=== PATIENT | female | born 1960 | race African-American/Black ===

== ENCOUNTER → 2019-01-04 | Day surgery (SDC) | payer BC ==
[~2019-01-04] MED LIST: ALIVE VITAMINS PO; ASCORBIC ACID500 MG PO; CEFDINIR300 MG PO; DEXAMETHASONE SOD PHOS INJ 4 MG/ML VIAL ONE; FENTANYL CITRATE/PF 100MCG/2 ML INJ ONE; FERROUS SULFAT325 MG PO; GENTAMICIN 80MG/NS 100 ML 100 ML IV ONE; IOPAMIDOL 610MG/1ML 300 MG/ML VIAL IV ONE; LIDOCAINE HCL 2% LOCAL INJ 5 ML SDV VIAL INJ ONE; LORATADINE10 MG PO; MIDAZOLAM HCL 2 MG/2 ML VIAL ONE; MUCINEX DM ER1 EACH PO; ONDANSETRON HCL INJ 2MG/ML 2ML 2 MG/ML VIAL ONE; PROCARDIA XL30 MG PO; PROPOFOL IV EMULSION 10 MG/ML 20 ML VIAL ONE; PROZAC20 MG PO; SEVOFLURANE INHAL SOLN 250 ML PEN BTL ONE; ZITHROMAX500 MG PO
--- OUTSIDE RECORDS SUMMARY | 2019-01-04 13:19 | XMS REPORT ---
Author Author [facility] Address Unknown Phone Unavailable Care Team Providers Care Dip Dyer Name Role Phone Unavailable Unavailable Payers Payer Name Policy Type Policy Number Effective Date Expiration Date Problems This patient has no known problems. Allergies, Adverse Reactions, Alerts Allergy Name Allergy Type Status Severity Reaction(s) Onset Date Inactive Date Treating Clinician Comments No Known Contrast Allergies DA Active U 2002-08-01 00:00:00 No Known Drug Allergies DA Active U 2002-08-01 00:00:00 No Known Food Allergies DA Active U 2002-08-01 00:00:00 No Known Other Allergies DA Active U 2002-08-01 00:00:00 Medications This patient has no known medications.
--- OUTSIDE RECORDS SUMMARY | 2019-01-04 13:19 | XMS REPORT | Clinical Summary ---
Author Author [facility] Address Unknown Phone Unavailable Care Team Providers Care Furnace Builder Name Role Phone Oz Arenas MD PCP Allergies Comments Active Allergy Reactions Severity Noted Date blisters Latex 11/28/2018 Sulfa (Sulfonamide Rash Low 10/31/2018 Antibiotics) Medications End Date Status Medication Sig Dispensed Refills Start Date Active NIFEdipine XL (PROCARDIA Take 60 mg by 0 XL) 60 MG 24 hr tablet mouth daily. Active FLUoxetine (PROzac) 10 MG Take 10 mg by 0 capsule mouth daily. Active mv-mn/folic acid/vit Take by 0 [id number] (ALIVE ONCE mouth. DAILY WOMEN 50 PLUS ORAL) 11/28/2018 Discontinued AMOXICILLIN ORAL Take 1 tablet 0 by mouth 2 (two) times a day. Active Problems Problem Noted Date Kidney stones 11/30/2018 Encounters Care Team Description Date Type Specialty Brennan Osborne MD ESWL WITH CYSTO, RIGHT STENT EXCHANGE 11/30/2018 Surgery General Surgery Shiraz Claudio, TOWER HOIST OPERATOR 11/30/2018 Anesthesia General Surgery Event Brennan Osborne MD Preop testing 11/30/2018 Hospital General Surgery Encounter Brennan Osborne MD Preop testing (Primary Dx) 11/28/2018 Pre-Admit Pre-Admission Testing Testing Appointment Brennan Osborne MD ESWL WITH CYSTO WITH INSERTION OF RIGHT STENT 11/02/2018 Surgery General Surgery Shiraz Claudio, TOWER HOIST OPERATOR 11/02/2018 Anesthesia General Surgery Event Brennan Osborne MD 11/02/2018 Hospital General Surgery Encounter Brennan Osborne MD Preop testing (Primary Dx) 10/31/2018 Pre-Admit Pre-Admission Testing Testing Appointment after 01/03/2018 Family History Medical History Relation Name Comments Cancer Father prostate Diabetes Father Prostate cancer Father Breast cancer Mother Cancer Mother breast Relation Name Status Comments Father Mother Social History Date Tobacco Use Types Packs/Day Years Used Never Smoker Smokeless Tobacco: Never Used Alcohol Use Drinks/Week oz/Week Comments Yes rarely Sex Assigned at Date Recorded Not on file Industry Job Start Date Occupation Not on file Not on file Not on file Travel End Travel History Travel Start No recent travel history available. Last Filed Vital Signs Time Taken Vital Sign Reading 11/30/2018 2:35 PM SOLAR DEVELOPMENT ENGINEER Blood Pressure 144/85 11/30/2018 2:35 PM SOLAR DEVELOPMENT ENGINEER Pulse 52 11/30/2018 2:08 PM SOLAR DEVELOPMENT ENGINEER Temperature 36.6 C (97.8 F) 11/30/2018 2:35 PM SOLAR DEVELOPMENT ENGINEER Respiratory Rate 16 11/30/2018 2:35 PM SOLAR DEVELOPMENT ENGINEER Oxygen Saturation 99% - Inhaled Oxygen - Concentration 11/30/2018 11:00 AM SOLAR DEVELOPMENT ENGINEER Weight 99 kg (218 lb 3.2 oz) 11/30/2018 11:00 AM SOLAR DEVELOPMENT ENGINEER Height 172.7 cm (5' 8") 11/30/2018 11:00 AM SOLAR DEVELOPMENT ENGINEER Body Mass Index 33.18 Plan of Treatment Health Maintenance Due Date Last Done Comments CERVICAL CANCER SCREENING 1980 BREAST CANCER SCREENING 2009 COLON CANCER SCREENING 2009 SHINGLES VACCINES (#1) 2009 INFLUENZA VACCINE 05/11/2018 Implants Device Identifier Shelf Expiration Date Model / Serial / Lot Implanted Type Area Manufactur er 08/01/2021 [id number] / / [id number] Stent Uretl Unvrsa 6fr 26cm Urological Right: Ureter, COOK Hydrphlc W/O Gw - [id number] Implants [place] UROLOGICAL Implanted: Qty: 1 on 11/02/2018 by or Brennan Briceno MD 08/27/2022 [id number] / / [id number] Stnt Uret 4.7fr 26cm Inlay - Urological N/A: N/A BARD [id number] Implants UROLOGICAL Implanted: Qty: 1 on 11/30/2018 by or Brennan Fiore MD Procedures Comments Procedure Name Priority Date/Time Associated Diagnosis ESWL WITH CYSTO WITH 11/30/2018 RIGHT KIDNEY STONE- N20.0 INSERTION OF STENT 1:00 PM SOLAR DEVELOPMENT ENGINEER Special Needs OFFICE SCHEDULES WITH NEXTMED [place] AN ELECTIVE Routine 11/30/2018 SUPRAGLOTTIC AIRWAY 12:55 PM SOLAR DEVELOPMENT ENGINEER Procedure Note - Shiraz Claudio CRNA - 11/30/2018 12:55 PM SOLAR DEVELOPMENT ENGINEER Airway Performed by: Shiraz Claudio CRNA Authorized by: Richard Perez MD Location: OR Urgency: Elective Difficult Airway: No Anesthesio logist: Richard Perez MD Resident/C RNA/AA: Shiraz Claudio CRNA Performed by: resident/C RNA/AA Preoxygena pedro with 100% O2: Yes Mask Ventilatio n: Not attempted Final Airway Type: Supraglott ic airway Final LMA: Unique LMA Size: 4 Number of Attempts at Approach: 1 Atraumati c, teeth intact AL AN ELECTIVE Routine 11/02/2018 SUPRAGLOTTIC AIRWAY 7:26 AM SOLAR DEVELOPMENT ENGINEER Procedure Note - John Odom - 11/02/2018 7:26 AM SOLAR DEVELOPMENT ENGINEER ANESTHESIA INTUBATION Date/Time: 11/02/2018 7:13 AM Performed by: John Odom Authorized by: Richard Perez MD Location: OR Urgency: Elective Difficult Airway: No Anesthesio logist: Richard Perez MD Resident/C RNA/AA: John Odom Performed by: resident/C RNA/AA Preoxygena pedro with 100% O2: Yes Mask Ventilatio n: Not attempted Final Airway Type: Supraglott ic airway Final LMA: Unique LMA Size: 4 Number of Attempts at Approach: 1 ESWL WITH CYSTO WITH 11/02/2018 N20.0 KIDNEY STONE INSERTION OF STENT 7:15 AM SOLAR DEVELOPMENT ENGINEER Special Needs [facility] CONF# [id number] ECG 12-LEAD Routine 10/31/2018 Preop testing 10:26 AM SOLAR DEVELOPMENT ENGINEER after 01/03/2018 Results * ECG 12 lead (10/31/2018 10:26 AM SOLAR DEVELOPMENT ENGINEER) Ventricular rate 60 [facility] Atrial rate 60 [facility] AL interval 156 [facility] QRSD interval 72 [facility] QT interval 468 [facility] QTC interval 468 [facility] P axis 1 22 [facility] QRS axis 1 -7 [facility] T wave axis 14 [facility] EKG impression Normal sinus rhythm-Voltage [facility] MUSE criteria for left ventricular hypertrophy-Prolonged QT-Abnormal ECG-No previous ECGs available- Narrative Performed At Performing Organization Address City/State/Zipcode Phone Number [facility] MUSE [address] [place] [address] after 01/03/2018 Insurance Payer Benefit Subscriber ID Type Phone Address Plan / Group BCBS ANTHEM xxxxxxxxxxxx PPO BLUE CROSS Advance Directives Patient has advance care planning documents on file. For more information, shante dominguez contact: Anil Walker [address] [place] [address]
[2019-01-04 16:15] VITALS: BP 120/80
--- NOTE | 2019-01-04 18:41 | Operative Report ---
DATE OF PROCEDURE: 01/04/2019 SURGEON: Brennan Osborne MD PREOPERATIVE DIAGNOSES: 1. Indwelling right ureteral stent. 2. Right staghorn calculus. POSTOPERATIVE DIAGNOSES: 1. Indwelling right ureteral stent. 2. 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 PROCEDURES: 1. Cystoscopy with complicated removal of a right indwelling ureteral stent in a staged fashion (entirely separate procedure for right indwelling stent). 2. Right-sided ureteroscopy, stone extraction (entirely separate procedure for right ureteral calculus in a staged fashion). 3. Right-sided ureteroscopy with laser lithotripsy staged (entirely separate procedure with explicit purpose of ridding the patient of staghorn right renal calculi). 4. Cystourethroscopy with insertion of a right indwelling ureteral stent (entirely separate procedure for diagnosis of right hydronephrosis staged). 5. Supervision of fluoroscopy. 6. Interpretation of retrograde pyelography. ANESTHESIA: General. ESTIMATED BLOOD LOSS: Minimal. COMPLICATIONS: None. INDICATIONS FOR PROCEDURE: Mrs. Redding is a very pleasant 58-year-old female, who has had staged procedures for staghorn calculi on the right. She and I had a long discussion about alternatives, risks and benefits, including doing nothing, shock wave lithotripsy, ureteroscopy, percutaneous surgery or open surgery. She voiced understanding of the options, alternatives, the risks and the benefits. She elected to proceed with ureteroscopy and dusting instead of percutaneous nephrolithotomy due to the increased rehab time and recovery time. She voiced understanding of the options, alternatives, risks, and benefits and she elected to proceed. PROCEDURE IN DETAIL: After informed consent was obtained, the patient was taken to the operative suite, placed supine on the operating table, underwent general anesthesia by the Anesthesia service, placed in dorsal lithotomy position, and sterilely prepped and draped in a standard fashion for cystoscopy. A 22.5-Dominican cystoscope was inserted per urethra. Encrusted stent was grasped and removed, it could not be catheterized. A guidewire was inserted alongside the ureteral stent and seen to coil at the level of renal pelvis under fluoroscopy. The ureter was then dilated with the ureteroscopic sheath. Second safety wire was introduced. A flexible ureteroscope was advanced. Ureteral calculus was seen in the proximal ureter. This was grasped with a basket and removed, passed off the table as a specimen. The scope was reintroduced, advanced all the way to the level of renal pelvis. At the beginning of the procedure, there was approximately 2 cm of cluster stone in the renal pelvis, a large 2.5 x 2 cm cluster in the superior pole, and a 1 x 1.5 cm cluster in the right lower pole. Utilizing the 274 micron laser fiber, the pelvic stones as well as a portion of the upper pole stones were ablated until visualization became impossible due to stone dust. At this time, no more visualization available. Scope was withdrawn, ureteral stent 7 x 26 cm was deployed with coil in the renal pelvis in the portal bladder. The patient's bladder was drained. She was awakened from anesthesia, transferred to recovery room in good condition. Supervision of fluoroscopy, interpretation of retrograde pyelography: I was present for the entire procedure and I supervised the use of fluoroscopy for both the stent removal, ureteroscopic portion to the ureteroscope. Right retrograde pyelogram was performed revealing a very large stone burden and staghorn calculi on the right side. Interim removal of large amount of right renal pelvis stones has been seen. MD WIL Junior/MODL /[id number] [place]TD[place]
== END | disposition home or self-care (01) ==
LOC: OR 13:15
PROVIDERS: ATTEND Urology
DX: N20.0 Calculus of kidney (principal); Z46.6 Encounter for fitting and adjustment of urinary device; N39.0 Urinary tract infection, site not specified; R35.1 Nocturia; I10 Essential (primary) hypertension; I49.1 Atrial premature depolarization; Z88.2 Allergy status to sulfonamides; Z01.810 Encounter for preprocedural cardiovascular examination; Z68.31 Body mass index [BMI] 31.0-31.9, adult
CPT/HCPCS: 52356; 74420; 88300; 93005; C2617; J1100; J1580; J2001; J2250; J2405; J2704; Q9967

== ENCOUNTER 2019-01-06 22:37 | Inpatient (IN) | payer BC ==
[~2019-01-06] VITALS: Ht 172.7 cm; Wt 96.3 kg
[~2019-01-06 22:37] MED LIST changes: -ASCORBIC ACID500 MG PO; -CEFDINIR300 MG PO; -DEXAMETHASONE SOD PHOS INJ 4 MG/ML VIAL ONE; -FENTANYL CITRATE/PF 100MCG/2 ML INJ ONE; -FERROUS SULFAT325 MG PO; -GENTAMICIN 80MG/NS 100 ML 100 ML IV ONE; -IOPAMIDOL 610MG/1ML 300 MG/ML VIAL IV ONE; -LIDOCAINE HCL 2% LOCAL INJ 5 ML SDV VIAL INJ ONE; -LORATADINE10 MG PO; -MIDAZOLAM HCL 2 MG/2 ML VIAL ONE; -MUCINEX DM ER1 EACH PO; -ONDANSETRON HCL INJ 2MG/ML 2ML 2 MG/ML VIAL ONE; -PROPOFOL IV EMULSION 10 MG/ML 20 ML VIAL ONE; -SEVOFLURANE INHAL SOLN 250 ML PEN BTL ONE; -ZITHROMAX500 MG PO
--- OUTSIDE RECORDS SUMMARY | 2019-01-06 22:39 | XMS REPORT | Clinical Summary ---
Author Author [facility] Address Unknown Phone Unavailable Care Team Providers Care Cap Machine Operator Name Role Phone Oz Arenas MD PCP [...] daily. Active mv-mn/folic acid/vit Take by 0 [id number] (ALIVE ONCE mouth. DAILY WOMEN 50 PLUS ORAL) 11/28/2018 Discontinued AMOXICILLIN ORAL Take 1 tablet 0 by mouth 2 (two) times a day. Active Problems Problem Noted Date Kidney stones 11/30/2018 Encounters Care Team Description Date Type Specialty Brennan Osborne MD ESWL WITH CYSTO, RIGHT STENT EXCHANGE 11/30/2018 Surgery General Surgery Shiraz Claudio, CEMENT TESTER ASSISTANT 11/30/2018 Anesthesia General Surgery Event Brennan Osborne MD Preop testing 11/30/2018 Hospital General Surgery Encounter Brennan Osborne MD Preop testing (Primary Dx) 11/28/2018 Pre-Admit Pre-Admission Testing Testing Appointment Brennan Osborne MD ESWL WITH CYSTO WITH INSERTION OF RIGHT STENT 11/02/2018 Surgery General Surgery Shiraz Claudio, CEMENT TESTER ASSISTANT 11/02/2018 Anesthesia General Surgery Event Brennan Osborne MD 11/02/2018 Hospital General Surgery Encounter Brennan Osborne MD Preop testing (Primary Dx) 10/31/2018 Pre-Admit Pre-Admission Testing Testing Appointment after 01/05/2018 Family History Medical History Relation Name Comments [...] Taken Vital Sign Reading 11/30/2018 2:35 PM PERSONAL COACH Blood Pressure 144/85 11/30/2018 2:35 PM PERSONAL COACH Pulse 52 11/30/2018 2:08 PM PERSONAL COACH Temperature 36.6 C (97.8 F) 11/30/2018 2:35 PM PERSONAL COACH Respiratory Rate 16 11/30/2018 2:35 PM PERSONAL COACH Oxygen Saturation 99% - Inhaled Oxygen - Concentration 11/30/2018 11:00 AM PERSONAL COACH Weight 99 kg (218 lb 3.2 oz) 11/30/2018 11:00 AM PERSONAL COACH Height 172.7 cm (5' 8") 11/30/2018 11:00 AM PERSONAL COACH Body Mass Index 33.18 Plan of Treatment Health Maintenance Due Date Last Done Comments CERVICAL CANCER SCREENING 1980 BREAST CANCER SCREENING 2009 COLON CANCER SCREENING 2009 SHINGLES VACCINES (#1) 2009 INFLUENZA VACCINE 05/11/2018 Implants Device Identifier Shelf Expiration Date Model / Serial / Lot Implanted Type Area Manufactur er 08/01/2021 [id number] / / [id number] Stent Uretl Unvrsa 6fr 26cm Urological Right: Ureter, COOK Hydrphlc W/O Gw - [id number] Implants [place] UROLOGICAL Implanted: Qty: 1 on 11/02/2018 by or Brennan Briceno MD 08/27/2022 [id number] / / [id number] Stnt Uret 4.7fr 26cm Inlay - Urological N/A: N/A BARD [id number] Implants UROLOGICAL Implanted: Qty: 1 on 11/30/2018 by or Brennan Fiore MD Procedures Comments Procedure Name Priority Date/Time Associated Diagnosis ESWL WITH CYSTO WITH 11/30/2018 RIGHT KIDNEY STONE- N20.0 INSERTION OF STENT 1:00 PM PERSONAL COACH Special Needs OFFICE SCHEDULES WITH NEXTMED [place] AN ELECTIVE Routine 11/30/2018 SUPRAGLOTTIC AIRWAY 12:55 PM PERSONAL COACH Procedure Note - Shiraz Claudio CRNA - 11/30/2018 12:55 PM PERSONAL COACH Airway Performed by: Shiraz Claudio CRNA Authorized [...] at Approach: 1 Atraumati c, teeth intact [place] AN ELECTIVE Routine 11/02/2018 SUPRAGLOTTIC AIRWAY 7:26 AM PERSONAL COACH Procedure Note - John Odom - 11/02/2018 7:26 AM PERSONAL COACH ANESTHESIA INTUBATION Date/Time: 11/02/2018 7:13 AM Performed [...] KIDNEY STONE INSERTION OF STENT 7:15 AM PERSONAL COACH Special Needs [facility] CONF# [id number] ECG 12-LEAD Routine 10/31/2018 Preop testing 10:26 AM PERSONAL COACH after 01/05/2018 Results * ECG 12 lead (10/31/2018 10:26 AM PERSONAL COACH) Ventricular rate 60 [facility] Atrial rate 60 [facility] FL interval 156 [facility] QRSD interval 72 [facility] QT interval 468 [facility] QTC interval 468 [facility] P axis 1 22 [facility] QRS axis 1 -7 [facility] T wave axis 14 [facility] EKG impression Normal sinus rhythm-Voltage [facility] MUSE criteria for left ventricular hypertrophy-Prolonged QT-Abnormal ECG-No previous ECGs available- Narrative Performed At Performing Organization Address City/State/Zipcode Phone Number [facility] M[facility] [address] [place] [address] after 01/05/2018 Insurance Payer Benefit Subscriber ID Type Phone Address Plan / Group BCBS ANTHEM xxxxxxxxxxxx PPO BLUE CROSS Advance Directives Patient has advance care planning documents on file. For more information, shante dominguez contact: Anil Walker [address] [place] [address]
[2019-01-06] MEDS ORDERED: ACETAMINOPHEN 325 MG TAB PO ONE (23:45)
[2019-01-07] VITALS (8 sets, daily range): BP systolic 101–140; BP diastolic 56–83
--- NOTE | 2019-01-07 00:35 | Diagnostic Imaging Report ---
EXAM: CT Abdomen and Pelvis WITHOUT contrast INDICATION: EVAL FOR KIDNEY STONE, RECENT URETERAL STENT COMPARISON: None. TECHNIQUE: Abdomen and pelvis were scanned utilizing a multidetector helical scanner from the lung base to the pubic symphysis without administration of IV contrast. Absence of intravenous contrast decreases sensitivity for detection of focal lesions and vascular pathology. Coronal and sagittal reformations were obtained. Routine protocol was performed. IV CONTRAST: None ORAL CONTRAST: Water COMPLICATIONS: None RADIATION DOSE: Total DLP: 651.01 mGy*cm Estimated effective dose: (DLP x 0.015 x size factor) mSv Dose modulation, iterative reconstruction, and/or weight based adjustment of the mA/kV was utilized to reduce the radiation dose to as low as reasonably achievable. FINDINGS: LINES and TUBES: Right ureteral stent and LAP-BAND in place. LOWER THORAX: Groundglass and tree-in-bud opacities in the left lower lobe. HEPATOBILIARY: Hepatic steatosis. No focal hepatic lesions. No biliary ductal dilation. GALLBLADDER: No radio-opaque stones or sludge. No wall thickening. SPLEEN: No splenomegaly. PANCREAS: No focal masses or ductal dilatation. ADRENALS: No adrenal nodules KIDNEYS/URETERS: Mild right hydronephrosis and perinephric stranding. Ureteral stent with proximal loop in the renal pelvis and distal loop in the bladder. No stent encrustation noted. 4 mm stone at the ureteropelvic junction. Right superior pole 6 mm stone and adjacent 4 mm stone versus parenchymal calcification. Stones throughout the right inferior pole calyces. Left proximal ureteral 3 mm stone without hydronephrosis. GI TRACT: No abnormal distention, wall thickening, or evidence of bowel obstruction. Appendix is normal. PELVIC ORGANS/BLADDER: Unremarkable. LYMPH NODES: No lymphadenopathy. VESSELS: Unremarkable. PERITONEUM / RETROPERITONEUM: No free air or fluid. BONES: There are degenerative changes in the lumbar spine. SOFT TISSUES: Midline laparotomy scar and sutures. IMPRESSION: 1. Right ureteral stent in place with mild hydronephrosis. 2. Left proximal ureteral 3 mm stone without hydronephrosis. 3. Left lower lobe groundglass and tree-in-bud opacities may represent aspiration or atypical infection. Signed by: DR. Nash Ferris MD on 01/07/2019 12:31 AM
--- NOTE | 2019-01-07 00:36 | Diagnostic Imaging Report ---
EXAMINATION: CHEST 2 VIEWS INDICATION: COUGH COMPARISON: CT abdomen and pelvis 01/07/2019 FINDINGS: PA and lateral views TUBES and LINES: Lap band with normal phi angle. Partially visualized right ureteral stent on lateral view. LUNGS: Left lower lobe tree-in-bud and groundglass opacities are better seen on CT 01/07/2019. There is no evidence of consolidative pneumonia or pulmonary edema. PLEURA: No pleural effusion or pneumothorax. HEART AND MEDIASTINUM: The cardiomediastinal silhouette is unremarkable. BONES AND SOFT TISSUES: No acute osseous lesion. Soft tissues are unremarkable. UPPER ABDOMEN: No free air under the diaphragm. IMPRESSION: Left lower lobe tree-in-bud and groundglass opacities concerning for aspiration or atypical infection are better seen on CT 01/07/2019. Signed by: DR. Nash Ferris MD on 01/07/2019 12:33 AM
[2019-01-07] MEDS ORDERED: AZITHROMYCIN 500MG/NS 250 ML 250 ML IV STA (00:45)
[2019-01-07] MEDS ORDERED: CEFTRIAXONE SOD 1 GM/NS 50 ML 50 ML IV ONE (00:45)
[2019-01-07 00:46] LABS: BASOPHILS % 0.1 % (0.0-1.0); EOSINOPHILS % 0.2 % (0.0-6.0); HEMATOCRIT 38.2 % (34.2-44.1); HEMOGLOBIN 12.3 g/dL (12.0-16.0); LYMPHOCYTES # (AUTO) 1.6 (1.0-3.2); LYMPHOCYTES % 11.5 % (18.0-39.1); MEAN CORPUSCULAR HEMOGLOBIN 28.1 pg (28-32); MEAN CORPUSCULAR HGB CONC 32.2 g/dL (31-35); MEAN CORPUSCULAR VOLUME 87.4 fL (81-99); MONOCYTES # (AUTO) 1.2 (0.2-0.8); MONOCYTES % 8.4 % (4.4-11.3); NEUTROPHILS # (AUTO) 11.2 (2.1-6.9); NEUTROPHILS % 79.4 % (38.7-80.0); PLATELET COUNT 261 x10e3/uL (140-360); RED BLOOD COUNT 4.37 x10e6/uL (3.6-5.1); RED CELL DISTRIBUTION WIDTH 14.3 % (11.7-14.4)
[2019-01-07 01:05] LABS: BILIRUBIN,URINE 1+ (NEGATIVE); CLARITY,URINE SL CLOUDY (CLEAR); COLOR,URINE YELLOW (YELLOW); KETONES,URINE 1+ (NEGATIVE); LEUKOCYTE ESTERASE ,URINE 2+ (NEGATIVE); NITRITE,URINE NEGATIVE (NEGATIVE); PROTEIN,URINE DIPSTICK 3+ (NEGATIVE); URINE UROBILINOGEN 4 mg/dL (0.2 - 1)
[2019-01-07 01:06] LABS: ALBUMIN 3.1 g/dL (3.5-5.0); ALBUMIN/GLOBULIN RATIO 0.6 (0.8-2.0); ANION GAP 15.8 mmol/L (8-16); CALCIUM 9.5 mg/dL (8.4-10.2); POTASSIUM 3.8 mmol/L (3.5-5.1)
[2019-01-07 01:13] LABS: AMORPHOUS SEDIMENT,URINE MODERATE (FEW); BACTERIA,URINE FEW /HPF; EPITHELIAL CELLS,URINE FEW /LPF; RBC,URINE 21-50 /HPF (0-5); WBC,URINE (MAN) 21-50 /HPF (0-5)
[2019-01-07] MEDS ORDERED: SODIUM CHLORIDE 0.9% 1000ML 1,000 ML IV SCH (01:30)
[2019-01-07] MEDS ORDERED: MORPHINE SULFATE INJ 4 MG/ML INJ 1ML IV PRN (01:30)
[2019-01-07] MEDS ORDERED: ONDANSETRON HCL INJ 2MG/ML 2ML 2 MG/ML VIAL IV PRN ×2 (01:30→13:30)
--- OUTSIDE RECORDS SUMMARY | 2019-01-07 01:38 | XMS REPORT | Clinical Summary ---
Author Author [facility] Address Unknown Phone Unavailable Care Team Providers Care Food Services Coordinator Name Role Phone Oz Arenas MD PCP [...] daily. Active mv-mn/folic acid/vit Take by 0 [id number] (ALIVE ONCE mouth. DAILY WOMEN 50 PLUS ORAL) 11/28/2018 Discontinued AMOXICILLIN ORAL Take 1 tablet 0 by mouth 2 (two) times a day. Active Problems Problem Noted Date Kidney stones 11/30/2018 Encounters Care Team Description Date Type Specialty Brennan Osborne MD ESWL WITH CYSTO, RIGHT STENT EXCHANGE 11/30/2018 Surgery General Surgery Shiraz Claudio, DOUBLING MACHINE OPERATOR 11/30/2018 Anesthesia General Surgery Event Brennan Osborne MD Preop testing 11/30/2018 Hospital General Surgery Encounter Brennan Osborne MD Preop testing (Primary Dx) 11/28/2018 Pre-Admit Pre-Admission Testing Testing Appointment Brennan Osborne MD ESWL WITH CYSTO WITH INSERTION OF RIGHT STENT 11/02/2018 Surgery General Surgery Shiraz Claudio, DOUBLING MACHINE OPERATOR 11/02/2018 Anesthesia General Surgery Event Brennan Osborne MD 11/02/2018 Hospital General Surgery Encounter Brennan Osborne MD Preop testing (Primary Dx) 10/31/2018 Pre-Admit Pre-Admission Testing Testing Appointment after 01/06/2018 Family History Medical History Relation Name Comments [...] Taken Vital Sign Reading 11/30/2018 2:35 PM SALES REPRESENTATIVE [employer] Blood Pressure 144/85 11/30/2018 2:35 PM SALES REPRESENTATIVE [employer] Pulse 52 11/30/2018 2:08 PM SALES REPRESENTATIVE [employer] Temperature 36.6 C (97.8 F) 11/30/2018 2:35 PM SALES REPRESENTATIVE [employer] Respiratory Rate 16 11/30/2018 2:35 PM SALES REPRESENTATIVE [employer] Oxygen Saturation 99% - Inhaled Oxygen - Concentration 11/30/2018 11:00 AM SALES REPRESENTATIVE [employer] Weight 99 kg (218 lb 3.2 oz) 11/30/2018 11:00 AM SALES REPRESENTATIVE [employer] Height 172.7 cm (5' 8") 11/30/2018 11:00 AM SALES REPRESENTATIVE [employer] Body Mass Index 33.18 Plan of Treatment Health Maintenance Due Date Last Done Comments CERVICAL CANCER SCREENING 1980 BREAST CANCER SCREENING 2009 COLON CANCER SCREENING 2009 SHINGLES VACCINES (#1) 2009 INFLUENZA VACCINE 05/11/2018 Implants Device Identifier Shelf Expiration Date Model / Serial / Lot Implanted Type Area Manufactur er 08/01/2021 [id number] / / [id number] Stent Uretl Unvrsa 6fr 26cm Urological Right: Ureter, COOK Hydrphlc W/O Gw - [id number] Implants [place] UROLOGICAL Implanted: Qty: 1 on 11/02/2018 by or Brennan Briceno MD 08/27/2022 [id number] / / [id number] Stnt Uret 4.7fr 26cm Inlay - Urological N/A: N/A BARD [id number] Implants UROLOGICAL Implanted: Qty: 1 on 11/30/2018 by or Brennan Fiore MD Procedures Comments Procedure Name Priority Date/Time Associated Diagnosis ESWL WITH CYSTO WITH 11/30/2018 RIGHT KIDNEY STONE- N20.0 INSERTION OF STENT 1:00 PM SALES REPRESENTATIVE [employer] Special Needs OFFICE SCHEDULES WITH NEXTMED [place] AN ELECTIVE Routine 11/30/2018 SUPRAGLOTTIC AIRWAY 12:55 PM SALES REPRESENTATIVE [employer] Procedure Note - Shiraz Claudio CRNA - 11/30/2018 12:55 PM SALES REPRESENTATIVE [employer] Airway Performed by: Shiraz Claudio CRNA Authorized [...] at Approach: 1 Atraumati c, teeth intact [place] AN ELECTIVE Routine 11/02/2018 SUPRAGLOTTIC AIRWAY 7:26 AM SALES REPRESENTATIVE [employer] Procedure Note - John Odom - 11/02/2018 7:26 AM SALES REPRESENTATIVE [employer] ANESTHESIA INTUBATION Date/Time: 11/02/2018 7:13 AM Performed [...] KIDNEY STONE INSERTION OF STENT 7:15 AM SALES REPRESENTATIVE [employer] Special Needs [facility] CONF# [id number] ECG 12-LEAD Routine 10/31/2018 Preop testing 10:26 AM SALES REPRESENTATIVE [employer] after 01/06/2018 Results * ECG 12 lead (10/31/2018 10:26 AM SALES REPRESENTATIVE [employer]) Ventricular rate 60 [facility] Atrial rate 60 [facility] MUSE NM interval 156 [facility] QRSD interval 72 [facility] QT interval 468 [facility] QTC interval 468 [facility] P axis 1 22 [facility] QRS axis 1 -7 [facility] T wave axis 14 [facility] EKG impression Normal sinus rhythm-Voltage [facility] MUSE criteria for left ventricular hypertrophy-Prolonged QT-Abnormal ECG-No previous ECGs available- Narrative Performed At Performing Organization Address City/State/Zipcode Phone Number [facility] M[facility] [address] [place] [address] after 01/06/2018 Insurance Payer Benefit Subscriber ID Type Phone Address Plan / Group BCBS ANTHEM xxxxxxxxxxxx PPO BLUE CROSS Advance Directives Patient has advance care planning documents on file. For more information, shante dominguez contact: Anil Walker [address] [place] [address]
[2019-01-07 01:41] LABS: CREATININE, SERUM 1.13 mg/dL (0.57-1.11)
--- NOTE | 2019-01-07 02:30 | NUR ---
PATIENT IS A NEW ADMIT THAT ARRIVED VIA WHEELCHAIR. PATIENT IS AWAKE AND TALKING. PATIENT HAS BEEN ASSISTED INTO THE BED. BED IS IN THE LOWEST POSITION AND CALL IRVIN IS WITHIN REACH. WILL CONTINUE TO MONITOR PATIENT.
[2019-01-07] MEDS: ACETAMINOPHEN 325 MG TAB PO PRN ×3 (05:55→19:58)
--- NOTE | 2019-01-07 05:55 | NUR ---
patient's temperature is 100.0. patient reports feeling cold. patient will be medicated with prn tylenol. patient has been offered two warm blankets, vegetable broth, and a warm pack of water. will continue to monitor patient.
--- NOTE | 2019-01-07 06:50 | NUR ---
answering service of dr bose notified of routine consultation. awaiting call back from physician.
--- NOTE | 2019-01-07 08:10 | NUR ---
Rechecked patient's temp 100.8F, Patient not in any distress. alert up in bed
[2019-01-07] MEDS ORDERED: HYDRALAZINE HCL 20 MG/ML VIAL IV PRN (13:30)
[2019-01-07] MEDS: ALBUTEROL/IPRATROPIUM 3 ML NEB NEB SCH ×3 (15:00→23:00)
--- NOTE | 2019-01-07 15:32 | Consultation ---
DATE OF CONSULTATION: 01/07/2019 Pulmonary Critical Care Consultation CHIEF COMPLAINT: Fever, chills, and cough. HISTORY OF PRESENT ILLNESS: The patient is a 58-year-old woman. She had some kidney stones. She had a recent urological procedure by Dr. Osborne to have kidney stones removed within the last week. She now complains of chills and fevers. She notes some nonproductive cough. She does not report any phlegm production. She has no chest pain. She has no dyspnea. PAST SURGICAL HISTORY: 1. Status post cystoscopy with retrograde pyelogram and ureteral stone extractions. 2. History of a gastric bypass surgery. 3. History of prior C-sections. 4. History of appendectomy. PAST MEDICAL HISTORY: 1. Hypertension. 2. Kidney stones. 3. Pyelonephritis. SOCIAL HISTORY: The patient's has recently been sick with an upper respiratory tract infection. She is occasional drinker and is not a smoker. FAMILY HISTORY: Family history is noncontributory. REVIEW OF SYSTEMS: She does have fever and chills. She has no headache. She has no neck pain. Oropharynx is normal. She does not complain of any chest pain. She does have cough. She has some sinus drainage. She does not note any nausea or vomiting. She has no abdominal pain. She does note some dysuria. PHYSICAL EXAMINATION: VITAL SIGNS: The patient is afebrile. The blood pressure is 106/65 and the saturation is 95% on room air. The pulse is 62. Respiratory rate is 18. HEENT: Shows no facial swelling or erythema. The nasal mucosa is normal. The oropharynx is normal. LYMPHATIC: Shows no submandibular, cervical, or supraclavicular adenopathy. CARDIAC: Reveals regular rate and rhythm with normal S1 and S2. LUNGS: Auscultation of lungs reveals rhonchorous breath sounds bilaterally. There is no wheezing. ABDOMEN: Soft, nontender. There is no rebound or guarding. EXTREMITIES: Show no leg edema or calf tenderness. There is no cyanosis or clubbing. SKIN: Shows no rashes. NEUROLOGICAL: Shows no focal abnormalities. RADIOGRAPHIC DATA: CT scan of the abdomen and pelvis shows, 1. A right lower lobe infiltrate with possible tree-in-bud appearance concerning for pneumonia. 2. There are kidney stones and mild hydronephrosis seen. IMPRESSION: 1. Aspiration pneumonia with sepsis, present on admission. 2. Pyelonephritis. 3. Nephrolithiasis. 4. Hypertension. 5. History of a gastric surgery for weight loss. PLAN: 1. Continue current antibiotics. 2. IV fluids. 3. Await culture results. 4. Urology consultation. MD LATASHA Silva/[place]QUIS /[id number]
[2019-01-07] MEDS: CEFTAZIDIME SOD 1 GM/NS 50ML 50 ML IV SCH (16:20)
[2019-01-07] MEDS: FAMOTIDINE 20 MG TAB PO SCH (16:55)
[2019-01-07] MEDS: GUAIFENESIN 600 MG TAB PO SCH (16:55)
--- NOTE | 2019-01-07 17:40 | NUR ---
Rechecked Temp its 98.3 oral, patient not in any distress, on IV fluids
--- NOTE | 2019-01-07 19:00 | NUR ---
RECEIVED REPORT FROM DAY NURSE. PATIENT IS RESTING COMFORTABLY IN BED. BED IS IN LOWEST POSITION AND CALL IRVIN IS WITHIN REACH. WILL CONTINUE TO MONITOR PATIENT.
--- NOTE | 2019-01-07 19:59 | NUR ---
PATIENT HAS A TEMPERATURE OF 102.3. PATIENT HAS BEEN GIVEN NEEDED ACETAMINOPHEN 650MG FOR TEMPERATURE. WILL CONTINUE TO MONITOR PATIENTS TEMPERATURE.
[2019-01-07] MEDS: SODIUM CHLORIDE 0.9% 1000ML 1,000 ML IV SCH (21:12)
[2019-01-07] MEDS ORDERED: CEFTRIAXONE SOD 1 GRAM/0.9% SOD CHL 50ML BAG IV SCH (22:00)
[2019-01-07] MEDS ORDERED: CEFTAZIDIME SOD 1 GM/NS 50ML 50 ML IV SCH (22:00)
[2019-01-07] MEDS ORDERED: CEFTAZIDIME 1 GM VIAL IV SCH (22:00)
[2019-01-07] MEDS: AZITHROMYCIN 500MG/SOD CHL 0.9% 250ML BAG IV SCH (23:16)
[2019-01-08] VITALS (7 sets, daily range): BP systolic 105–127; BP diastolic 54–70
[2019-01-08] MEDS: CEFTAZIDIME SOD 1 GM/NS 50ML 50 ML IV SCH ×4 (00:37→23:38)
[2019-01-08] MEDS: ACETAMINOPHEN 325 MG TAB PO PRN ×2 (02:28→15:45)
--- NOTE | 2019-01-08 02:28 | NUR ---
patient has a temperature of 101.4. patient will be medicated with acetaminophen for the elevated temperature. will continue to monitor patients temperature.
[2019-01-08] MEDS: ALBUTEROL/IPRATROPIUM 3 ML NEB NEB SCH ×6 (03:52→23:55)
[2019-01-08 05:15] LABS: BASOPHILS % 0.2 % (0.0-1.0); EOSINOPHILS % 0.2 % (0.0-6.0); HEMATOCRIT 30.6 % (34.2-44.1); HEMOGLOBIN 9.7 g/dL (12.0-16.0); MEAN CORPUSCULAR HGB CONC 31.7 g/dL (31-35); MEAN CORPUSCULAR VOLUME 88.2 fL (81-99); MONOCYTES # (AUTO) 1.6 (0.2-0.8); MONOCYTES % 10.2 % (4.4-11.3); NEUTROPHILS # (AUTO) 11.8 (2.1-6.9); NEUTROPHILS % 75.8 % (38.7-80.0); PLATELET COUNT 201 x10e3/uL (140-360); RED BLOOD COUNT 3.47 x10e6/uL (3.6-5.1); RED CELL DISTRIBUTION WIDTH 14.4 % (11.7-14.4)
[2019-01-08 05:46] LABS: ALANINE AMINOTRANSFERASE 14 IU/L (0-55); ALBUMIN 2.3 g/dL (3.5-5.0); ALBUMIN/GLOBULIN RATIO 0.5 (0.8-2.0); ALKALINE PHOSPHATASE 57 IU/L (40-150); ANION GAP 11.6 mmol/L (8-16); BLOOD UREA NITROGEN 9 mg/dL (7-26); BUN/CREATININE RATIO 10 (6-25); CALCIUM 8.5 mg/dL (8.4-10.2); CARBON DIOXIDE 22 mmol/L (22-29); CHLORIDE 106 mmol/L (98-107); EST GLOMERULAR FILTRATION RATE > 60 ML/MIN (60-); GLUCOSE 152 mg/dL (74-118); POTASSIUM 3.6 mmol/L (3.5-5.1); SODIUM 136 mmol/L (136-145)
--- NOTE | 2019-01-08 06:08 | Diagnostic Imaging Report ---
EXAMINATION: CHEST 2 VIEWS INDICATION: Pneumonia COMPARISON: CT abdomen and pelvis 01/07/2019, chest x-ray 01/07/2019 FINDINGS: TUBES and LINES: Lap band with normal phi angle. LUNGS: Left lower lobe tree-in-bud and groundglass opacities are better seen on CT 01/07/2019. Increased left midlung opacity. There is no evidence of consolidative pneumonia or pulmonary edema. PLEURA: No pleural effusion or pneumothorax. HEART AND MEDIASTINUM: The cardiomediastinal silhouette is unremarkable. BONES AND SOFT TISSUES: No acute osseous lesion. Soft tissues are unremarkable. UPPER ABDOMEN: No free air under the diaphragm. IMPRESSION: Left lower lobe tree-in-bud and groundglass opacities concerning for aspiration or atypical infection are better seen on CT 01/07/2019. Signed by: DR. Nash Ferris MD on 01/08/2019 6:05 AM
[2019-01-08] MEDS: SODIUM CHLORIDE 0.9% 1000ML 1,000 ML IV SCH ×4 (06:26→23:24)
--- NOTE | 2019-01-08 06:49 | NUR ---
report given to day nurse. patient is resting comfortably in bed
[2019-01-08] MEDS: GUAIFENESIN 600 MG TAB PO SCH ×2 (09:08→17:23)
[2019-01-08] MEDS: FAMOTIDINE 20 MG TAB PO SCH ×2 (09:08→17:23)
[2019-01-08] MEDS: FLUOXETINE HCL 10 MG CAP PO SCH (09:20)
--- NOTE | 2019-01-08 10:50 | Progress Note ---
DATE: Pulmonary Critical Care Progress Note SUBJECTIVE: The patient feels slightly better, but still has some headache. She still has some chills. PHYSICAL EXAMINATION: VITAL SIGNS: The blood pressure is 106/70 and the pulse is 58. The respiratory rate is 18. HEENT: Shows no facial swelling or erythema. LYMPHATIC: Shows no submandibular, cervical or supraclavicular adenopathy. CARDIAC: Reveals regular rate and rhythm with a normal S1, S2. There are no murmurs or rubs. LUNGS: Auscultation of lungs reveals rhonchorous breath sounds bilaterally. There is no wheezing. ABDOMEN: Soft, nontender. There is no rebound or guarding. EXTREMITIES: Show no leg edema or calf tenderness. There is no cyanosis, clubbing. SKIN: Shows no rashes. NEUROLOGICAL: Shows no focal abnormalities. IMPRESSION: 1. Community-acquired pneumonia with sepsis, present on admission. 2. Pyelonephritis. 3. Nephrolithiasis. 4. Hypertension. 5. History of gastric surgery for weight loss. PLAN: 1. Continue IV antibiotics. 2. IV fluids. 3. Await final culture results. Artur Story MD [facility]/[place]QU[place] /[id number]
[2019-01-08] MEDS: NIFEDIPINE CR 30 MG TAB PO SCH (11:05)
--- NOTE | 2019-01-08 18:10 | NUR ---
patient resting in bed, not in any distress, denies any pain
--- NOTE | 2019-01-08 19:00 | NUR ---
received report from day nurse. patient is resting comfortably in bed. bed is in lowest position and call jeff is within reach. will continue to monitor patient.
[2019-01-08] MEDS: AZITHROMYCIN 500MG/SOD CHL 0.9% 250ML BAG IV SCH (21:42)
--- NOTE | 2019-01-08 22:00 | NUR ---
patient's iv is no longer patent and is irritating patient. A new 20gauge IV has been started on patient's left forearm. iv is patent and their blood back flow. procedure tolerated well.
[2019-01-09] VITALS (7 sets, daily range): BP systolic 117–127; BP diastolic 61–74
[2019-01-09] MEDS: ALBUTEROL/IPRATROPIUM 3 ML NEB NEB SCH ×6 (03:00→23:15)
[2019-01-09 04:37] LABS: BASOPHILS % 0.4 % (0.0-1.0); EOSINOPHILS % 0.3 % (0.0-6.0); HEMATOCRIT 27.9 % (34.2-44.1); HEMOGLOBIN 8.9 g/dL (12.0-16.0); LYMPHOCYTES # (AUTO) 1.9 (1.0-3.2); LYMPHOCYTES % 18.1 % (18.0-39.1); MEAN CORPUSCULAR HEMOGLOBIN 27.5 pg (28-32); MEAN CORPUSCULAR HGB CONC 31.9 g/dL (31-35); MEAN CORPUSCULAR VOLUME 86.1 fL (81-99); MONOCYTES # (AUTO) 1.4 (0.2-0.8); MONOCYTES % 13.5 % (4.4-11.3); NEUTROPHILS # (AUTO) 7.1 (2.1-6.9); NEUTROPHILS % 67.2 % (38.7-80.0); PLATELET COUNT 230 x10e3/uL (140-360); RED BLOOD COUNT 3.24 x10e6/uL (3.6-5.1); RED CELL DISTRIBUTION WIDTH 14.6 % (11.7-14.4)
[2019-01-09 04:57] LABS: BLOOD UREA NITROGEN 6 mg/dL (7-26); BUN/CREATININE RATIO 8 (6-25); CALCIUM 8.6 mg/dL (8.4-10.2); CARBON DIOXIDE 22 mmol/L (22-29); CHLORIDE 108 mmol/L (98-107); CREATININE, SERUM 0.71 mg/dL (0.57-1.11); EST GLOMERULAR FILTRATION RATE > 60 ML/MIN (60-); GLUCOSE 107 mg/dL (74-118); SODIUM 138 mmol/L (136-145)
[2019-01-09 05:06] LABS: B-TYPE NATRIURETIC PEPTIDE2 207.2 pg/mL (0-100)
[2019-01-09 05:22] LABS: FREE T4 (FREE THYROXINE) 1.15 ng/dL (0.9-1.8)
--- NOTE | 2019-01-09 06:35 | NUR ---
patients potassium is 3.0. CYBER ENGINEER notified. CYBER ENGINEER states "you do not have to call for non-critical results".
--- NOTE | 2019-01-09 07:01 | NUR ---
report given to day nurse. patient is resting comfortably in bed. bed is in lowest position and call jeff is within reach.
--- NOTE | 2019-01-09 07:32 | NUR ---
PATIENT IN BED RESTING WITH NO RESPIRATORY DISTRESS, DENIED PAIN AT THIS TIME. BED IN LOWER POSITION, CALL LIGHT AT REACH.
[2019-01-09] MEDS ORDERED: POTASSIUM CHLORIDE 20 MEQ TAB CR PO STA (07:36)
[2019-01-09] MEDS ORDERED: BACLOFEN 10 MG TAB PO PRN (07:45)
[2019-01-09] MEDS: FAMOTIDINE 20 MG TAB PO SCH ×2 (08:00→16:37)
[2019-01-09] MEDS: FLUOXETINE HCL 10 MG CAP PO SCH (09:00)
[2019-01-09] MEDS: SODIUM CHLORIDE 0.9% 1000ML 1,000 ML IV SCH ×2 (09:24→17:23)
[2019-01-09] MEDS: FERROUS SULFATE 325 MG TAB PO SCH ×2 (09:24→17:23)
[2019-01-09] MEDS: CEFTAZIDIME SOD 1 GM/NS 50ML 50 ML IV SCH ×2 (09:24→16:37)
[2019-01-09] MEDS: DOCUSATE SODIUM 100 MG CAP PO SCH ×2 (09:25→17:23)
[2019-01-09] MEDS: NIFEDIPINE CR 30 MG TAB PO SCH (09:25)
[2019-01-09] MEDS: LORATADINE 10 MG TAB PO SCH (09:25)
[2019-01-09] MEDS: GUAIFENESIN 600MG/DEXTROMETHORPHAN 30MG TABSR PO SCH ×2 (09:25→17:23)
[2019-01-09] MEDS: ASCORBIC ACID 500 MG TAB PO SCH ×2 (09:25→17:24)
--- NOTE | 2019-01-09 10:40 | Progress Note ---
DATE: Pulmonary Critical Care Progress Note SUBJECTIVE: The patient has no fever or chills. She still complains of some headache. She has known neck pain. PHYSICAL EXAMINATION: VITAL SIGNS: Stable. HEENT: Shows no facial swelling or erythema. CARDIAC: Reveals regular rate and rhythm with normal S1, S2. There are no murmurs or rubs heard. LUNGS: Auscultation of lungs reveals rhonchorous breath sounds bilaterally. There is no wheezing. ABDOMEN: Soft, nontender. There is no rebound or guarding. EXTREMITIES: Show no leg edema or calf tenderness. There is no cyanosis or clubbing. SKIN: Shows no rashes. IMPRESSION: 1. Aspiration pneumonia with sepsis, present on admission. 2. Headache. 3. Urinary tract infection. 4. Nephrolithiasis. PLAN: 1. Continue IV antibiotics. Change to p.o. antibiotics with possible discharge tomorrow. 2. Treat headache. 3. Urology has seen the patient and does not think any further interventions are necessary at this time. Artur Story MD [facility]/LEONIDL /[id number]
--- NOTE | 2019-01-09 11:50 | NUR ---
PATIENT AMBULATING BY SELF IN HALLWAY, NO COMPLAIN VOICED. WILL CONTINUE TO MONITOR.
--- NOTE | 2019-01-09 14:58 | NUR ---
SOCIAL WORK INITIAL ASSESSMENT Demolition Specialist to bedside to discuss plan of care with patient/family. CM/SW role and care transitions discussed. Anticipated discharge plan discussed along with duration of care. CM/SW discussed patients right to make decisions in care. CM/SW work hours given. Patient lives: IN HOUSE WITH FAMILY Admit/Transfer: VIA ED POA/Emergency contact: JOSAFAT MARK [phone] Current/Previous Home Health: NONE PCP/Follow-up Care: CARL Current/Previous DME: NONE Other Services: NONE Employment Status: [employer] Areas of Concerns: NONE Referral Needs: NONE Education Needs: NONE IMM/ROMAN given and signed (if applicable): NA Goal for discharge: RETURN HOME NO NEEDS CM/SW left business card at the bedside with contact information. Name and number was also written on the patients whiteboard. Patient verbalized understanding of discussion. CM will follow-up with ongoing discharge and transition of care needs.
--- NOTE | 2019-01-09 15:53 | NUR ---
PATIENT AMBULATED TO THE RESTROOM. IN BED WITH HEAD OF BED ELEVATED WATCHING TV, NO COMPLAIN VOICED. CALL LIGHT AT REACH.
--- NOTE | 2019-01-09 19:00 | NUR ---
Report and rounds completed. Patient in bed resting watching TV, Call light within reach. Will continue to monitor.
[2019-01-09] MEDS ORDERED: FLUOXETINE HCL 10 MG CAP PO SCH (21:00)
[2019-01-09] MEDS: AZITHROMYCIN 500MG/SOD CHL 0.9% 250ML BAG IV SCH (22:43)
[2019-01-10] VITALS: BP 119/70
[2019-01-10] MEDS: SODIUM CHLORIDE 0.9% 1000ML 1,000 ML IV SCH (00:08)
[2019-01-10] MEDS: CEFTAZIDIME SOD 1 GM/NS 50ML 50 ML IV SCH ×2 (00:08→08:17)
[2019-01-10] MEDS: ALBUTEROL/IPRATROPIUM 3 ML NEB NEB SCH ×2 (03:10→08:00)
[2019-01-10 03:53] LABS: BASOPHILS % 0.4 % (0.0-1.0); EOSINOPHILS # (AUTO) 0.1 (0.0-0.4); EOSINOPHILS % 1.6 % (0.0-6.0); HEMATOCRIT 30.3 % (34.2-44.1); HEMOGLOBIN 9.7 g/dL (12.0-16.0); LYMPHOCYTES % 24.6 % (18.0-39.1); MEAN CORPUSCULAR HEMOGLOBIN 27.9 pg (28-32); MEAN CORPUSCULAR VOLUME 87.1 fL (81-99); MONOCYTES # (AUTO) 0.8 (0.2-0.8); MONOCYTES % 10.2 % (4.4-11.3); NEUTROPHILS # (AUTO) 5.1 (2.1-6.9); NEUTROPHILS % 62.7 % (38.7-80.0); PLATELET COUNT 303 x10e3/uL (140-360); RED BLOOD COUNT 3.48 x10e6/uL (3.6-5.1); RED CELL DISTRIBUTION WIDTH 14.6 % (11.7-14.4)
[2019-01-10 04:00] VITALS: BP 120/68
[2019-01-10 04:04] LABS: ANION GAP 10.3 mmol/L (8-16); BLOOD UREA NITROGEN < 5 mg/dL (7-26); CALCIUM 9.3 mg/dL (8.4-10.2); CARBON DIOXIDE 24 mmol/L (22-29); CHLORIDE 104 mmol/L (98-107); CREATININE, SERUM 0.64 mg/dL (0.57-1.11); EST GLOMERULAR FILTRATION RATE > 60 ML/MIN (60-); GLUCOSE 92 mg/dL (74-118); MAGNESIUM 1.8 MG/DL (1.3-2.1); POTASSIUM 3.3 mmol/L (3.5-5.1); SODIUM 135 mmol/L (136-145)
[2019-01-10 04:08] LABS: BUN/CREATININE RATIO 8 (6-25)
[2019-01-10 04:27] LABS: FERRITIN 175.15 ng/mL (4.63-204.00)
[2019-01-10 04:40] LABS: FOLATE 13.4 ng/mL (7.0-15.4)
--- NOTE | 2019-01-10 06:00 | NUR ---
Resting in bed, eyes closed, resp even and unlabored. Sister at bedside. Call light within reach. Will continue to monitor. Addendum: 01/10/19 at 0634 by Daksha Jacobson RN Resting in bed, eyes closed, resp even and unlabored. Call light within reach. Will continue to monitor.
[2019-01-10] MEDS ORDERED: ZITHROMAX500 MG PO (07:14)
[2019-01-10] MEDS ORDERED: LORATADINE10 MG PO (07:14)
[2019-01-10] MEDS ORDERED: MUCINEX DM ER1 EACH PO (07:14)
[2019-01-10] MEDS ORDERED: CEFDINIR300 MG PO (07:14)
[2019-01-10] MEDS ORDERED: FERROUS SULFAT325 MG PO (07:14)
[2019-01-10] MEDS ORDERED: ASCORBIC ACID500 MG PO (07:20)
--- NOTE | 2019-01-10 07:26 | NUR ---
PATIENT IN BED RESTING WITH EYES CLOSED, NO RESPIRATORY DISTRESS OBSERVED. IV FLUID INFUSING ORDERED. BED IN LOWER POSITION, CALL LIGHT AT REACH.
[2019-01-10 07:30] VITALS: BP 121/67
[2019-01-10] MEDS ORDERED: POTASSIUM CHLORIDE 20 MEQ TAB CR PO ONE (07:30)
[2019-01-10] MEDS: FAMOTIDINE 20 MG TAB PO SCH (07:30)
[2019-01-10 07:43] VITALS: BP 121/67
[2019-01-10] MEDS: FERROUS SULFATE 325 MG TAB PO SCH (08:17)
[2019-01-10] MEDS ORDERED: ONDANSETRON HCL 4 MG ORAL DISINTEGRATING TAB PO PRN (09:00)
[2019-01-10] MEDS: NIFEDIPINE CR 30 MG TAB PO SCH (09:00)
[2019-01-10] MEDS: ASCORBIC ACID 500 MG TAB PO SCH (09:09)
[2019-01-10] MEDS: LORATADINE 10 MG TAB PO SCH (09:09)
[2019-01-10] MEDS: DOCUSATE SODIUM 100 MG CAP PO SCH (09:09)
[2019-01-10] MEDS: GUAIFENESIN 600MG/DEXTROMETHORPHAN 30MG TABSR PO SCH (09:09)
--- NOTE | 2019-01-10 10:47 | Progress Note ---
DATE: 01/10/2019 Pulmonary Critical Care Progress Note SUBJECTIVE: The patient feels better. She is not having fevers. Her headache is improved. PHYSICAL EXAMINATION: VITAL SIGNS: The patient is afebrile. The vital signs are stable. HEENT: Shows no facial swelling or erythema. CARDIAC: Reveals a regular rate and rhythm with a normal S1 and S2. LUNGS: Auscultation of lungs reveals clear breath sounds bilaterally. There is no wheezing. ABDOMEN: Soft, nontender. There is no rebound or guarding. EXTREMITIES: Show no leg edema or calf tenderness. IMPRESSION: 1. Community-acquired pneumonia. 2. Urinary tract infection. 3. Nephrolithiasis. PLAN: 1. The patient should complete an additional seven days of p.o. antibiotics as an outpatient. 2. She needs a repeat chest x-ray in 2-3 weeks as an outpatient. MD LATASHA Silva/[place]QUIS /[id number]
--- NOTE | 2019-01-10 11:25 | NUR ---
PATIENT DISCHARGED HOME. DISCHARGE INSTRUCTIONS, PRESCRIPTIONS, AND FOLLOW UP GIVEN TO PATIENT, SHE VERBALIZED UNDERSTANDING. IV TO LEFT FOREARM REMOVED WITH TIP INTACT. ALL PERSONAL ITEMS TAKEN WITH PATIENT. REFUSED WHEEL CHAIR, BUT WAS ACCOMPANIED BY A HOSPITAL STAFF TO FRONT LOBBY IN STABLE CONDITION.
--- NOTE | 2019-01-11 01:40 | Discharge Summary ---
ADMISSION DIAGNOSES: Urinary tract infection, community-acquired pneumonia present on admission with sepsis, hypertension, acute kidney injury versus chronic kidney disease. DISCHARGE DIAGNOSES: Urinary tract infection, community-acquired pneumonia present on admission with sepsis, hypertension, acute kidney injury versus chronic kidney disease. Rule out urinary tract infection plus hypokalemia, hyponatremia, anemia. HISTORY: Hypertension and kidney stones. SURGICAL HISTORY: , appendectomy, bariatric surgery, right ureteral stent, right oophorectomy. FAMILY HISTORY: The patient's dad had diabetes. The patient's mom had cancer. The patient's paternal grandma had a stroke. SOCIAL HISTORY: Occasional alcohol use. HOSPITAL COURSE: A 58-year-old female complains of a dry cough since Wednesday with a fever of 102.5 on the night prior to admission. She had a renal stent placed 01/04/2019 and has had dysuria and hematuria since then. She denies nausea, vomiting, and diarrhea. Her is sick at that time. She denies congestion, sneezing, watery eyes, and wheeze. On admission, patient was started on Zithromax, Rocephin, nebs, and Mucinex. Flu was negative. Pulmonology was consulted. CT of the abdomen showed a right ureteral stent with mild hydronephrosis. Left proximal ureteral 3 mm stone without hydronephrosis. Left lower lobe ground-glass and tree-in-bud opacities may represent aspiration and atypical pneumonia. Chest x-ray showed left lower lobe tree in bud and ground-glass opacities. Blood cultures negative. Urine culture negative. Sputum culture negative. The patient was discharged home with the remaining doses of Zithromax and Omnicef. She was also given a prescription for Mucinex, Claritin, iron, and vitamin C. She will follow up with primary care in 1-2 weeks. Vital signs stable, patient afebrile. The patient understands discharge instructions and agrees to plan. Dictated by Carey Ruby NP Zack Larsen MD [facility]/MODL /[id number]
[2019-02-23] MEDS ORDERED: ALIVE PO (14:50)
[2019-02-23] MEDS ORDERED: PROCARDIA XL30 MG PO (14:50)
[2019-02-23] MEDS ORDERED: PROZAC20 MG PO (14:50)
== END 2019-01-10 11:23 | disposition home or self-care (01) | DRG 871 ==
LOC: ER 22:37 → ERHOLD 01-07 01:34 → IMCU 01-07 02:14 → OBSVTOIN 01-07 14:37
PROVIDERS: ADMIT Internal Medicine; ATTEND Internal Medicine
DX: A41.9 Sepsis, unspecified organism (principal); J69.0 Pneumonitis due to inhalation of food and vomit; N17.9 Acute kidney failure, unspecified; E87.1 Hypo-osmolality and hyponatremia; N13.6 Pyonephrosis; I10 Essential (primary) hypertension; E87.6 Hypokalemia; R30.0 Dysuria; D64.9 Anemia, unspecified; Z98.84 Bariatric surgery status; Z96.0 Presence of urogenital implants
CPT/HCPCS: 36415; 71046; 74176; 80048; 80053; 81001; 82607; 82728; 82746; 83036; 83540; 83605; 83735; 83880; 84439; 84443; 84466; 85025; 87040; 87070; 87086; 87205; 87400; 87449; 94640; 96361; 99284; J0456; J0696; J0713; J7030

== ENCOUNTER → 2019-02-24 | Day surgery (SDC) | payer BC ==
--- NOTE | 2019-02-23 14:23 | Diagnostic Imaging Report ---
EXAM: Abdomen 1 Views INDICATION: Pre-op KUB for kidney stone surgery. ^KUB PRE OP COMPARISON: CT abdomen and pelvis 01/06/2019. FINDINGS: LAP-BAND port is visualized in midline abdomen. of stool in the colon. No dilated loops of small bowel. 1.8 x 2.8 cm cluster of stones in the lower pole of the right kidney. No upper pole stones identified. Right double-J ureteral stent with the proximal end in the right renal pelvis. Extensive encrustation/tiny stones throughout the mid stent measuring 13.7 cm in length. No abnormal soft tissue masses. Moderate degenerative changes in the lumbar spine and pelvis. Multiple small cerclage wire seen in the midline lower abdomen/pelvis. Surgical sutures in the right hemipelvis. IMPRESSION: 1. 1.8 x 2.8 cm right renal stone. 2. Extensive encrustation/tiny stones throughout the mid double-J ureteral stent measuring 13.7 cm in length. Signed by: Dr. Twan Posey M.D. on 02/23/2019 2:20 PM
[~2019-02-24] MED LIST changes: +ALIVE PO; +ASCORBIC ACID500 MG PO; +CEFDINIR300 MG PO; +DEXAMETHASONE SOD PHOS INJ 4 MG/ML VIAL ONE; +FENTANYL CITRATE/PF 100MCG/2 ML INJ ONE; +FERROUS SULFAT325 MG PO; +GENTAMICIN 120MG/NS 100ML 0 ML ONE; +GENTAMICIN 120MG/NS 100ML 100 ML ONE; +IOPAMIDOL 610MG/1ML 300 MG/ML VIAL IV ONE; +LIDOCAINE HCL 2% LOCAL INJ 5 ML SDV VIAL INJ ONE; +LORATADINE10 MG PO; +MIDAZOLAM HCL 2 MG/2 ML VIAL ONE; +MUCINEX DM ER1 EACH PO; +ONDANSETRON HCL INJ 2MG/ML 2ML 2 MG/ML VIAL ONE; +PROPOFOL IV EMULSION 10 MG/ML 20 ML VIAL ONE; +SEVOFLURANE INHAL SOLN 250 ML PEN BTL ONE; +ZITHROMAX500 MG PO
--- OUTSIDE RECORDS SUMMARY | 2019-02-24 07:03 | XMS REPORT | Clinical Summary ---
Author Author [facility] Organization [facility] Address Unknown Phone Unavailable Care Team Providers Care Texture Artist Name Role Phone Oz Arenas MD PCP [...] daily. Active mv-mn/folic acid/vit Take by 0 [id number] (ALIVE ONCE mouth. DAILY WOMEN 50 PLUS ORAL) 11/28/2018 Discontinued AMOXICILLIN ORAL Take 1 tablet 0 by mouth 2 (two) times a day. Active Problems Problem Noted Date Kidney stones 11/30/2018 Encounters Care Team Description Date Type Specialty Brennan Osborne MD ESWL WITH CYSTO, RIGHT STENT EXCHANGE 11/30/2018 Surgery General Surgery Shiraz Claudio, FINANCIAL REPORT SERVICE SALES AGENT 11/30/2018 Anesthesia General Surgery Event Brennan Osborne MD Preop testing 11/30/2018 Hospital General Surgery Encounter Brennan Osborne MD Preop testing (Primary Dx) 11/28/2018 Pre-Admit Pre-Admission Testing Testing Appointment Brennan Osborne MD ESWL WITH CYSTO WITH INSERTION OF RIGHT STENT 11/02/2018 Surgery General Surgery Shiraz Claudio, FINANCIAL REPORT SERVICE SALES AGENT 11/02/2018 Anesthesia General Surgery Event Brennan Osborne MD 11/02/2018 Hospital General Surgery Encounter Brennan Osborne MD Preop testing (Primary Dx) 10/31/2018 Pre-Admit Pre-Admission Testing Testing Appointment after 02/23/2018 Family History Medical History Relation Name Comments [...] Taken Vital Sign Reading 11/30/2018 2:35 PM CLOUD AUTOMATION TESTER Blood Pressure 144/85 11/30/2018 2:35 PM CLOUD AUTOMATION TESTER Pulse 52 11/30/2018 2:08 PM CLOUD AUTOMATION TESTER Temperature 36.6 C (97.8 F) 11/30/2018 2:35 PM CLOUD AUTOMATION TESTER Respiratory Rate 16 11/30/2018 2:35 PM CLOUD AUTOMATION TESTER Oxygen Saturation 99% - Inhaled Oxygen - Concentration 11/30/2018 11:00 AM CLOUD AUTOMATION TESTER Weight 99 kg (218 lb 3.2 oz) 11/30/2018 11:00 AM CLOUD AUTOMATION TESTER Height 172.7 cm (5' 8") 11/30/2018 11:00 AM CLOUD AUTOMATION TESTER Body Mass Index 33.18 Plan of Treatment Health Maintenance Due Date Last Done Comments CERVICAL CANCER SCREENING 1980 BREAST CANCER SCREENING 2009 COLON CANCER SCREENING 2009 SHINGLES VACCINES (#1) 2009 INFLUENZA VACCINE 05/11/2019 Implants Device Identifier Shelf Expiration Date Model / Serial / Lot Implanted Type Area Manufactur er 08/01/2021 [id number] / / [id number] Stent Uretl Unvrsa 6fr 26cm Urological Right: Ureter, COOK Hydrphlc W/O Gw - [id number] Implants [place] UROLOGICAL Implanted: Qty: 1 on 11/02/2018 by or Brennan Briceno MD 08/27/2022 [id number] / / [id number] Stnt Uret 4.7fr 26cm Inlay - Urological N/A: N/A BARD [id number] Implants UROLOGICAL Implanted: Qty: 1 on 11/30/2018 by or Brennan Fiore MD Procedures Comments Procedure Name Priority Date/Time Associated Diagnosis ESWL WITH CYSTO WITH 11/30/2018 RIGHT KIDNEY STONE- N20.0 INSERTION OF STENT 1:00 PM CLOUD AUTOMATION TESTER Special Needs OFFICE SCHEDULES WITH NEXTMED OH AN ELECTIVE Routine 11/30/2018 SUPRAGLOTTIC AIRWAY 12:55 PM CLOUD AUTOMATION TESTER Procedure Note - Shiraz Claudio CRNA - 11/30/2018 12:55 PM CLOUD AUTOMATION TESTER Airway Performed by: Shiraz Claudio CRNA Authorized [...] at Approach: 1 Atraumati c, teeth intact OH AN ELECTIVE Routine 11/02/2018 SUPRAGLOTTIC AIRWAY 7:26 AM CLOUD AUTOMATION TESTER Procedure Note - John Odom - 11/02/2018 7:26 AM CLOUD AUTOMATION TESTER ANESTHESIA INTUBATION Date/Time: 11/02/2018 7:13 AM Performed [...] KIDNEY STONE INSERTION OF STENT 7:15 AM CLOUD AUTOMATION TESTER Special Needs [facility] CONF# [id number] ECG 12-LEAD Routine 10/31/2018 Preop testing 10:26 AM CLOUD AUTOMATION TESTER after 02/23/2018 Results * ECG 12 lead (10/31/2018 10:26 AM CLOUD AUTOMATION TESTER) Ventricular rate 60 [facility] Atrial rate 60 [facility] OH interval 156 [facility] QRSD interval 72 [facility] QT interval 468 [facility] QTC interval 468 [facility] P axis 1 22 [facility] QRS axis 1 -7 [facility] T wave axis 14 [facility] EKG impression Normal sinus rhythm-Voltage [facility] criteria for left ventricular hypertrophy-Prolonged QT-Abnormal ECG-No previous ECGs available- Narrative Performed At Performing Organization Address City/State/Zipcode Phone Number [facility] [address] [place] [address] after 02/23/2018 Insurance Payer Benefit Subscriber ID Type Phone Address Plan / Group BCBS ANTHEM xxxxxxxxxxxx PPO BLUE CROSS Advance Directives Patient has advance care planning documents on file. For more information, shante dominguez contact: Anli Walker [address] [place] [address]
[2019-02-24 10:00] VITALS: BP 117/91
--- NOTE | 2019-02-24 20:31 | Operative Report ---
DATE OF PROCEDURE: 02/24/2019 SURGEON: Brennan Osborne MD PREOPERATIVE DIAGNOSES: 1. Right partial staghorn. 2. Steinstrasse. 3. Encrusted ureteral stent. 4. Hydronephrosis. POSTOPERATIVE DIAGNOSES: 1. Right partial staghorn. 2. Steinstrasse. 3. Encrusted ureteral stent. 4. Hydronephrosis. PROCEDURES: 1. Cystourethroscopy with complicated removal of right indwelling ureteral stent (entirely separate procedure for encrusted stent). 2. Right-sided ureteroscopy with laser lithotripsy (entirely separate procedure in a staged fashion for Steinstrasse). 3. Right-sided ureteroscopy with stone extraction (entirely separate procedure for Steinstrasse). 4. Cystourethroscopy with insertion of a right indwelling stent (entirely separate procedure in a staged fashion for hydronephrosis). 5. Supervision of fluoroscopy. 6. Interpretation of retrograde pyelography. ANESTHESIA: General. ESTIMATED BLOOD LOSS: Minimal. COMPLICATION: None. INDICATIONS: Ms. Redding is a 58-year-old female with a partial staghorn, who underwent previous shock wave lithotripsy and ureteroscopy. From the origins of a 30 x 2 cm stone, the patient somehow has, per the report, 13 cm of stone from the patient's kidney to the patient's bladder. The patient and I had a long discussion about alternatives, risks, and benefits including nothing, shock wave lithotripsy, ureteroscopy, percutaneous surgery or open surgery. She voiced understanding of the options, the alternatives, the risks and the benefits, and elected to proceed with ureteroscopy. PROCEDURE IN DETAIL: After informed consent was obtained, the patient was taken to the operative suite, placed supine, underwent general anesthesia by the service, placed in dorsal lithotomy position, sterilely prepped and draped for cystoscopy. A 21- Thai cystoscope was inserted per urethra. Normal urethra was noted. There was encrusted stent seen extruding from the right ureteral orifice. Attempt was made to insert a guidewire alongside the stent, this failed initially, finally got the stent moved and was able to get a guidewire proximal with a 5-Thai open-ended and angled tip glide. Major area of encrustation was just proximal to the vessels. The ureteroscope semi-rigid was advanced, over 2.5 sq cm of stone removed with greater than 50 basketing attempts just to reach the proximal vessel. In the proximal vessel, there was an extremely impacted area. A 365 micron laser fiber was brought into field, utilizing the dusting setting laser was performed until blockage be cleared. At this time though visualization became so poor with bleeding, I could no longer proceed. A 7 x 26 ureteral stent was placed with a coil in the renal pelvis and a coil in the bladder with the expectation to return in approximately one week, to continue to try and progressing proximally. Supervision of fluoroscopy: I was present and supervised fluoroscopy as no radiologist was present. MD WIL Junior/MODL /[id number] MTDD
== END | disposition home or self-care (01) ==
LOC: OR 06:54
PROVIDERS: ATTEND Urology
DX: N13.2 Hydronephrosis with renal and ureteral calculous obstruction (principal); Z96.0 Presence of urogenital implants; Z88.2 Allergy status to sulfonamides; I10 Essential (primary) hypertension; Z87.01 Personal history of pneumonia (recurrent)
CPT/HCPCS: 52356; 74018; 88300; C1758; C1766; C1876; C2617; J1100; J1580; J2001; J2250; J2405; J2704; Q9967

== ENCOUNTER → 2019-03-17 | Day surgery (SDC) | payer BC ==
[~2019-03-17] MED LIST changes: +DESFLURANE 240 ML BTL INH ONE; +EYE LUBRICANT OPTH OINT 3.5GM TUBE OP ONE; -GENTAMICIN 120MG/NS 100ML 0 ML ONE; -GENTAMICIN 120MG/NS 100ML 100 ML ONE; +GENTAMICIN 80MG/NS 100 ML 100 ML IV ONE; +LIDOCAINE HCL 2% JELLY 5 ML TUBE ONE; -SEVOFLURANE INHAL SOLN 250 ML PEN BTL ONE
--- OUTSIDE RECORDS SUMMARY | 2019-03-17 09:48 | XMS REPORT | Clinical Summary ---
Author Author [facility] Organization [facility] Address Unknown Phone Unavailable Care Team Providers Care Territory Manager Name Role Phone Oz Arenas MD PCP [...] daily. Active mv-mn/folic acid/vit Take by 0 [id number] (ALIVE ONCE mouth. DAILY WOMEN 50 PLUS ORAL) 11/28/2018 Discontinued AMOXICILLIN ORAL Take 1 tablet 0 by mouth 2 (two) times a day. Active Problems Problem Noted Date Kidney stones 11/30/2018 Encounters Care Team Description Date Type Specialty Brennan Osborne MD ESWL WITH CYSTO, RIGHT STENT EXCHANGE 11/30/2018 Surgery General Surgery Shiraz Claudio, FACTORY MACHINE COMPUTER OPERATOR 11/30/2018 Anesthesia General Surgery Event Brennan Osborne MD Preop testing 11/30/2018 Hospital General Surgery Encounter Brennan Osborne MD Preop testing (Primary Dx) 11/28/2018 Pre-Admit Pre-Admission Testing Testing Appointment Brennan Osborne MD ESWL WITH CYSTO WITH INSERTION OF RIGHT STENT 11/02/2018 Surgery General Surgery Shiraz Claudio, FACTORY MACHINE COMPUTER OPERATOR 11/02/2018 Anesthesia General Surgery Event Brennan Osborne MD 11/02/2018 Hospital General Surgery Encounter Brennan Osborne MD Preop testing (Primary Dx) 10/31/2018 Pre-Admit Pre-Admission Testing Testing Appointment after 03/16/2018 Family History Medical History Relation Name Comments [...] Taken Vital Sign Reading 11/30/2018 2:35 PM TOOL BUILDER Blood Pressure 144/85 11/30/2018 2:35 PM TOOL BUILDER Pulse 52 11/30/2018 2:08 PM TOOL BUILDER Temperature 36.6 C (97.8 F) 11/30/2018 2:35 PM TOOL BUILDER Respiratory Rate 16 11/30/2018 2:35 PM TOOL BUILDER Oxygen Saturation 99% - Inhaled Oxygen - Concentration 11/30/2018 11:00 AM TOOL BUILDER Weight 99 kg (218 lb 3.2 oz) 11/30/2018 11:00 AM TOOL BUILDER Height 172.7 cm (5' 8") 11/30/2018 11:00 AM TOOL BUILDER Body Mass Index 33.18 Plan of Treatment Health Maintenance Due Date Last Done Comments BREAST CANCER SCREENING 2009 COLON CANCER SCREENING 2009 SHINGLES VACCINES (#1) 2009 INFLUENZA VACCINE 05/11/2019 Implants Device Identifier Shelf Expiration Date Model / Serial / Lot Implanted Type Area Manufactur er 08/01/2021 [id number] / / [id number] Stent Uretl Unvrsa 6fr 26cm Urological Right: Ureter, COOK Hydrphlc W/O Gw - [id number] Implants [place] UROLOGICAL Implanted: Qty: 1 on 11/02/2018 by or Brennan Briceno MD 08/27/2022 [id number] / / [id number] Stnt Uret 4.7fr 26cm Inlay - Urological N/A: N/A BARD [id number] Implants UROLOGICAL Implanted: Qty: 1 on 11/30/2018 by or Kyle DIV[employer] Brennan Osborne MD Procedures Comments Procedure Name Priority Date/Time Associated Diagnosis ESWL WITH CYSTO WITH 11/30/2018 RIGHT KIDNEY STONE- N20.0 INSERTION OF STENT 1:00 PM TOOL BUILDER Special Needs OFFICE SCHEDULES WITH [facility] AN ELECTIVE Routine 11/30/2018 SUPRAGLOTTIC AIRWAY 12:55 PM TOOL BUILDER Procedure Note - Shiraz Claudio CRNA - 11/30/2018 12:55 PM TOOL BUILDER Airway Performed by: Shiraz Claudio CRNA Authorized [...] at Approach: 1 Atraumati c, teeth intact CO AN ELECTIVE Routine 11/02/2018 SUPRAGLOTTIC AIRWAY 7:26 AM TOOL BUILDER Procedure Note - John Odom - 11/02/2018 7:26 AM TOOL BUILDER ANESTHESIA INTUBATION Date/Time: 11/02/2018 7:13 AM Performed [...] KIDNEY STONE INSERTION OF STENT 7:15 AM TOOL BUILDER Special Needs [facility] CONF# [id number] ECG 12-LEAD Routine 10/31/2018 Preop testing 10:26 AM TOOL BUILDER after 03/16/2018 Results * ECG 12 lead (10/31/2018 10:26 AM TOOL BUILDER) Ventricular 60 [facility] rate Atrial rate 60 [facility] CO interval 156 [facility] QRSD interval 72 [facility] QT interval 468 [facility] QTC interval 468 [facility] P axis 1 22 [facility] QRS axis 1 -7 [facility] T wave axis 14 [facility] EKG impression Normal sinus rhythm-Voltage [facility] criteria for left ventricular hypertrophy-Prolonged QT-Abnormal ECG-No previous ECGs available- Specimen Narrative Performed At Performing Organization Address City/State/Zipcode Phone Number [facility] [address] [place] [address] after 03/16/2018 Insurance Type Payer Benefit Subscriber ID Effective Phone Address Plan / Dates Group PPO BCBS ANTHEM xxxxxxxxxxxx 2012-P BLUE CROSS resent Advance Directives Patient has advance care planning documents on file. For more information, shante dominguez contact: Anil Walker [address] [place] [address]
[2019-03-17 10:55] VITALS: BP 127/80
--- NOTE | 2019-03-18 19:43 | Operative Report ---
DATE OF PROCEDURE: 03/17/2019 SURGEON: Brennan Osborne MD PREOPERATIVE DIAGNOSES: 1. Steinstrasse. 2. Staghorn calculi. 3. Indwelling stent. 4. Hydronephrosis. POSTOPERATIVE DIAGNOSES: 1. Steinstrasse. 2. Staghorn calculi. 3. Indwelling stent. 4. Hydronephrosis. PROCEDURES: 1. Staged complicated removal of right indwelling stent (entirely separate procedure in a staged fashion for removal of a right indwelling stent). 2. Staged right-sided ureteroscopy with laser lithotripsy (entirely separate staged procedure to rid the patient of over 13 cm stone burden in a noninvasive fashion at the patient's request). 3. Staged ureteroscopy with stone extraction (removal of over 53 stones), not required for laser lithotripsy. 4. Cystourethroscopy with insertion of a right indwelling stent (entirely separate procedure in a staged fashion for right-sided hydronephrosis. 5. Supervision of fluoroscopy. 6. Interpretation of retrograde pyelography. ANESTHESIA: General. ESTIMATED BLOOD LOSS: Minimal. COMPLICATIONS: None. INDICATIONS FOR PROCEDURE: Ms. Redding is a 58-year-old female with over 13 cm of Steinstrasse. She and I had a long discussion about alternatives, risks, and benefits of doing nothing, ureteroscopy, percutaneous surgery or open surgery. She voiced understanding of the options, alternatives, risks, and benefits, and she elected to proceed. PROCEDURE IN DETAIL: After informed consent was obtained, the patient was taken to operating suite, placed supine on the operating table under general anesthesia by the Anesthesia Service. She was placed in a dorsal lithotomy position, sterilely prepped and draped in a sterile fashion for cystoscopy. A 21-Chinese cystoscope was inserted per urethra and the stent was pulled. Attempt was made to catheterize the stent with a guidewire, this failed. Stent was removed completely. The guidewire was then inserted and taken to the level of the renal pelvis under fluoroscopy. The ureteroscope was advanced and made it to approximately the level of the pelvic inlet vessels where we began encountering stones. Utilizing a combination of laser lithotripsy to unblock large obstructing stones and basket extraction, a total of over 58 stones were basket extracted. We managed to progress approximately 6 inches, approximately 3 inches from the UPJ almost to the level of the lap band port. At this time with the inability to see secondary to local bleeding, a 7 x 26 ureteral stent was placed with a coil in the renal pelvis in the gallbladder after a retrograde pyelogram that showed there was no extravasation. The bladder was drained. The patient was awakened from anesthesia and transported to the recovery room in excellent condition. Supervision of fluoroscopy and interpretation of retrograde pyelography: I was present for the entire procedure and supervised fluoroscopy. There was no radiologist present. Attention was turned towards the right ureteral orifices which were catheterized with ureteroscope. Retrograde pyelogram was performed revealing no extravasation. Steinstrasse still covering approximately proximal 2-3 inches of ureter as well as partial staghorn in the kidney. MD WIL Junior/MODL /[id number]
== END | disposition home or self-care (01) ==
LOC: OR 08:06
PROVIDERS: ATTEND Urology
DX: N20.0 Calculus of kidney (principal); Z46.6 Encounter for fitting and adjustment of urinary device; N13.30 Unspecified hydronephrosis; N39.0 Urinary tract infection, site not specified; R35.1 Nocturia; I10 Essential (primary) hypertension; F41.9 Anxiety disorder, unspecified; Z88.2 Allergy status to sulfonamides; Z68.32 Body mass index [BMI] 32.0-32.9, adult; Z87.01 Personal history of pneumonia (recurrent)
CPT/HCPCS: 52356; 74420; 88300; C1758; C2617; J1100; J1580; J2001 ×2; J2250; J2405; J2704; Q9967

== ENCOUNTER → 2019-04-28 | Day surgery (SDC) | payer BC ==
[~2019-04-28] MED LIST changes: -DESFLURANE 240 ML BTL INH ONE; -EYE LUBRICANT OPTH OINT 3.5GM TUBE OP ONE; +GENTAMICIN 120MG/NS 100ML 100 ML ONE; -GENTAMICIN 80MG/NS 100 ML 100 ML IV ONE; -LIDOCAINE HCL 2% JELLY 5 ML TUBE ONE
--- OUTSIDE RECORDS SUMMARY | 2019-04-28 06:38 | XMS REPORT | Clinical Summary ---
Author Author [employer] Organization [employer] Address Unknown Phone Unavailable Care Team Providers Care Attorney General Name Role Phone Oz Arenas MD PCP [...] daily. Active mv-mn/folic acid/vit Take by 0 [id number] (ALIVE ONCE mouth. DAILY WOMEN 50 PLUS ORAL) 11/28/2018 Discontinued AMOXICILLIN ORAL Take 1 tablet 0 by mouth 2 (two) times a day. Active Problems Problem Noted Date Kidney stones 11/30/2018 Encounters Care Team Description Date Type Specialty Brennan Osborne MD ESWL WITH CYSTO, RIGHT STENT EXCHANGE 11/30/2018 Surgery General Surgery Shiraz Claudio, GOVERNMENT SALES MANAGER 11/30/2018 Anesthesia General Surgery Event Brennan Osborne MD Preop testing 11/30/2018 Hospital General Surgery Encounter Brennan Osborne MD Preop testing (Primary Dx) 11/28/2018 Pre-Admit Pre-Admission Testing Testing Appointment Brennan Osborne MD ESWL WITH CYSTO WITH INSERTION OF RIGHT STENT 11/02/2018 Surgery General Surgery Shiraz Claudio, GOVERNMENT SALES MANAGER 11/02/2018 Anesthesia General Surgery Event Brennan Osborne MD 11/02/2018 Hospital General Surgery Encounter Brennan Osborne MD Preop testing (Primary Dx) 10/31/2018 Pre-Admit Pre-Admission Testing Testing Appointment after 04/27/2018 Family History Medical History Relation Name Comments [...] Taken Vital Sign Reading 11/30/2018 2:35 PM MEDICINE AIDE Blood Pressure 144/85 11/30/2018 2:35 PM MEDICINE AIDE Pulse 52 11/30/2018 2:08 PM MEDICINE AIDE Temperature 36.6 C (97.8 F) 11/30/2018 2:35 PM MEDICINE AIDE Respiratory Rate 16 11/30/2018 2:35 PM MEDICINE AIDE Oxygen Saturation 99% - Inhaled Oxygen - Concentration 11/30/2018 11:00 AM MEDICINE AIDE Weight 99 kg (218 lb 3.2 oz) 11/30/2018 11:00 AM MEDICINE AIDE Height 172.7 cm (5' 8") 11/30/2018 11:00 AM MEDICINE AIDE Body Mass Index 33.18 Plan of Treatment Health Maintenance Due Date Last Done Comments BREAST CANCER SCREENING 2009 COLONOSCOPY SCREENING 2009 SHINGLES VACCINES (#1) 2009 INFLUENZA VACCINE 05/11/2019 Implants Device Identifier Shelf Expiration Date Model / Serial / Lot Implanted Type Area Manufactur er 08/01/2021 [id number] / / [id number] Stent Uretl Unvrsa 6fr 26cm Urological Right: Ureter, COOK Hydrphlc W/O Gw - [id number] Implants [place] UROLOGICAL Implanted: Qty: 1 on 11/02/2018 by or Brennan Briceno MD 08/27/2022 [id number] / / [id number] Stnt Uret 4.7fr 26cm Inlay - Urological N/A: N/A BARD [id number] Implants UROLOGICAL Implanted: Qty: 1 on 11/30/2018 by or Kyle DIVISION Brennan Osborne MD Procedures Comments Procedure Name Priority Date/Time Associated Diagnosis ESWL WITH CYSTO WITH 11/30/2018 RIGHT KIDNEY STONE- N20.0 INSERTION OF STENT 1:00 PM MEDICINE AIDE Special Needs OFFICE [facility]EDULES WITH [facility] AN ELECTIVE Routine 11/30/2018 SUPRAGLOTTIC AIRWAY 12:55 PM MEDICINE AIDE Procedure Note - Shiraz Claudio CRNA - 11/30/2018 12:55 PM MEDICINE AIDE Airway Performed by: Shriaz Claudio CRNA Authorized by: Richard Perez MD Location: OR Urgency: Elective Difficult Airway: No Anesthesio logist: Richard Perez MD Resident/C RNA/AA: Shiarz Claudio CRNA Performed by: resident/C RNA/AA Preoxygena pedro with 100% O2: Yes Mask Ventilatio n: Not attempted Final Airway Type: Supraglott ic airway Final LMA: Unique LMA Size: 4 Number of Attempts at Approach: 1 Atraumati c, teeth intact AR AN ELECTIVE Routine 11/02/2018 SUPRAGLOTTIC AIRWAY 7:26 AM MEDICINE AIDE Procedure Note - John Odom - 11/02/2018 7:26 AM MEDICINE AIDE ANESTHESIA INTUBATION Date/Time: 11/02/2018 7:13 AM Performed [...] KIDNEY STONE INSERTION OF STENT 7:15 AM MEDICINE AIDE Special Needs [facility] CONF# [id number] ECG 12-LEAD Routine 10/31/2018 Preop testing 10:26 AM MEDICINE AIDE after 04/27/2018 Results * ECG 12 lead (10/31/2018 10:26 AM MEDICINE AIDE) Ventricular 60 [facility] rate Atrial rate 60 [facility] AR interval 156 [facility] QRSD interval 72 [facility] QT interval 468 [facility] QTC interval 468 [facility] P axis 1 22 [facility] QRS axis 1 -7 [facility] T wave axis 14 [facility] EKG impression Normal sinus rhythm-Voltage [facility] criteria for left ventricular hypertrophy-Prolonged QT-Abnormal ECG-No previous ECGs available- Specimen Narrative Performed At Performing Organization Address City/State/Zipcode Phone Number [facility] [address] [place] [address] after 04/27/2018 Insurance Type Payer Benefit Subscriber ID Effective Phone Address Plan / Dates Group PPO BCBS ANTHEM xxxxxxxxxxxx 2012-P BLUE CROSS resent Advance Directives Patient has advance care planning documents on file. For more information, shante dominguez contact: Anil Walker [address] [place] [address]
[2019-04-28 10:05] VITALS: BP 146/93
--- NOTE | 2019-04-29 20:58 | Operative Report ---
DATE OF PROCEDURE: 04/28/2019 SURGEON: Brennan Osborne MD PREOPERATIVE DIAGNOSES: 1. Right-sided Steinstrasse, renal calculi, status post staghorn. 2. Indwelling ureteral stent. POSTOPERATIVE DIAGNOSES: 1. Right-sided Steinstrasse, renal calculi, status post staghorn. 2. Indwelling ureteral stent. PROCEDURES: 1. Staged cystourethroscopy with removal of right indwelling stent (entirely separate procedure in a staged fashion for removal of right indwelling stent). 2. Staged right-sided ureteroscopy with laser lithotripsy (entirely separate procedure to rid the patient of Steinstrasse and staghorn calculi). 3. Staged right-sided ureteroscopy with stone extraction (entirely separate procedure to rid the patient of Steinstrasse on the right side). 4. Supervision of fluoroscopy. 5. Interpretation of retrograde pyelography. ANESTHESIA: General. ESTIMATED BLOOD LOSS: Minimal. COMPLICATIONS: None. INDICATIONS FOR PROCEDURE: Ms. Redding is a 59-year-old female with a history of partial staghorn and Steinstrasse previously with over 6 cm of stone burden, now presenting with definitive management and prior ureteroscopic debulkations. She voiced understanding of the options, alternatives, risks, and benefits and she elected to proceed. PROCEDURE IN DETAIL: After informed consent was obtained, the patient was taken to the operative suite. She underwent general anesthesia, placed in dorsal lithotomy position and sterilely prepped and draped in standard fashion for cystoscopy. After time-out was taken, cystoscope was introduced. The stent was removed. A guidewire was inserted alongside of the stent as it was encrusted. Ureteroscope was advanced to multiple stones, which were basket extracted. Eventually in the proximal ureter, several large stones were seen. These were too large to be basked extracted. A laser fiber was utilized to break these into smaller fractions and were then basket extracted. The scope was then advanced all the way to the level of renal pelvis. There were several stones in the lower pole, which could not be accessed with flexible scope. With the inability to access these stones any further and no obstructing stone seen, the scope was withdrawn. The safety wire was removed. The bladder was drained. The patient was awakened from anesthesia and transferred to the recovery room in excellent condition. Supervision of fluoroscopy: I was present for the entire procedure and supervised fluoroscopy as well as ureteroscopic and stent removal portions. There was no radiologist present. MD WIL Junior/MODL /[id number]
== END | disposition home or self-care (01) ==
LOC: OR 06:36
PROVIDERS: ATTEND Urology
DX: N20.0 Calculus of kidney (principal); Z46.6 Encounter for fitting and adjustment of urinary device; Z88.2 Allergy status to sulfonamides; N39.0 Urinary tract infection, site not specified; R31.29 Other microscopic hematuria; I10 Essential (primary) hypertension; R35.1 Nocturia; T83.192A Other mechanical complication of indwelling ureteral stent, initial encounter; N20.1 Calculus of ureter; Z87.442 Personal history of urinary calculi
CPT/HCPCS: 52353; 88300; 93005; C1758; J1100; J1580; J2001; J2250; J2405; J2704; J3010; Q9967; 76000